=== PATIENT | male | born 1985 | race Caucasian/White ===

== ENCOUNTER 2016-12-10 12:54 | Emergency (ER) | payer SELFPAY ==
[~2016-12-10 12:54] MED LIST: Acetaminophen/HYDROcodone 325-5 MG Tab PO ONE; metroNIDAZOLE 500 MG Tab PO ONE
[2016-12-10 13:00] VITALS: BP 154/105
[2016-12-10] MEDS ORDERED: Ibuprofen 200 MG Tab PO ONE (13:03)
[2016-12-10] MEDS ORDERED: metroNIDAZOLE 500 MG Tab PO ONE (13:17)
[2016-12-10] MEDS ORDERED: Acetaminophen/HYDROcodone 325-5 MG Tab PO ONE (13:18)
[2016-12-10] MEDS ORDERED: Take Home: Acetaminophen/HYDROcodone 325-5 MG, 2 Tab Pack PO ONE (13:20)
[2016-12-10] MEDS ORDERED: Take Home: metroNIDAZOLE 500 MG Tab, 4 Tab Pack PO ONE (13:21)
--- NOTE | 2016-12-10 13:31 | EDM.PDOC ---
ED HPI GENERAL MEDICAL PROBLEM - General Chief Complaint: Fever Stated Complaint: tooth infection Time Seen by Provider: 12/10/16 13:07 Source of Information: Reports: Patient History Limitations: Reports: No Limitations - History of Present Illness INITIAL COMMENTS - FREE TEXT/NARRATIVE: This patient is a 31 year old male that presents to the ER. Patient reports that since Sunday he has had dental pain. He reports he did have right upper dental pain and was seen by his PCP on Sunday, was prescribed Clindamycin. The patient reports then yesterday he started having also right lower frontal tooth pain with swelling and fever. The patient reports it does hurt to eat or drink. The patient denies judge, dizziness, n, v, d, neck pain, cp, soa, abd pain. The patient has mild trismus with mild swelling right lower jaw. The patient does not have facial cellulitis. No orbital involvement. Patient is fully alert and oriented. He is conversing in full and complete sentences without difficulty. Onset Date: 12/04/16 Location: Reports: Other (tooth) Quality: Reports: Throbbing Severity: Moderate Improves with: Reports: None Worsens with: Reports: None Associated Symptoms: Reports: Fever/Chills. 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 (see below) (Clindamycin) Right Oral/Mouth Pain Score (Numeric/FACES): 8 - Related Data Allergies Allergy/AdvReac Type Severity Reaction Status Date / Time No Known Allergies Allergy Verified 12/10/16 12:55 Home Meds: Home Meds Clindamycin HCl 300 mg PO TID 12/10/16 [History] Nebivolol HCl [Bystolic] 10 mg PO DAILY 12/10/16 [History] Past Medical History - Past Health History Medical/Surgical History: Denies Medical/Surgical History Social & Family History - Tobacco Use Smoking Status *Q: Current Every Day Smoker Years of Tobacco use: 8 Packs/Tins Daily: 1 - Caffeine Use Caffeine Use: Reports: Coffee - Recreational Drug Use Recreational Drug Use: No ED ROS ENT - Review of Systems Review Of Systems: See Below Constitutional: Reports: Fever HEENT: Reports: Other (tooth pain right frontal lower) Respiratory: Reports: No Symptoms Cardiovascular: Reports: No Symptoms Endocrine: Reports: No Symptoms GI/Abdominal: Reports: No Symptoms : Reports: No Symptoms Musculoskeletal: Reports: No Symptoms Skin: Reports: No Symptoms Neurological: Reports: No Symptoms Psychiatric: Reports: No Symptoms Hematologic/Lymphatic: Reports: No Symptoms Immunologic: Reports: No Symptoms ED EXAM, ENT - Physical Exam Exam: See Below Exam Limited By: No Limitations General Appearance: Alert, WD/WN, No Apparent Distress Eye Exam: Bilateral Eye: Normal Inspection, PERRL Ears: Normal External Exam, Normal Canal, Hearing Grossly Normal, Normal TMs Nose: Normal Inspection, Normal Mucousa, No Blood Mouth/Throat: Normal Inspection, Dental Abcess (right frontal lower right jaw), Dental Pain (right frontal lower), Trismus (mild). No: Drooling, Throat Pain, Throat Swelling, Tongue Swelling, Tonsillar Erythema, Tonsillar Exudates, Tonsillar Swelling, Uvular Deviation, Uvular Edema Head: Atraumatic, Normocephalic Neck: Normal Inspection, Supple, Non-Tender, Full Range of Motion. No: Lymphadenopathy (L), Lymphadenopathy (R) Respiratory/Chest: No Respiratory Distress, Lungs Clear, Normal Breath Sounds, No Accessory Muscle Use Cardiovascular: Normal Peripheral Pulses, Regular Rate, Rhythm, No Edema, No Gallop, No JVD, No Murmur, No Rub Extremities: Normal Inspection Neurological: Alert, Oriented Psychiatric: Normal Affect, Normal Mood Skin: Warm, Dry, Intact, Normal Color, No Rash Lymphatic: No Adenopathy Course - Vital Signs Last Recorded V/S: Last Vital Signs Temp 100.1 F 12/10/16 12:57 Pulse 127 H 12/10/16 12:57 Resp 18 12/10/16 12:57 BP 154/105 H 12/10/16 12:57 Pulse Ox 98 12/10/16 12:57 - Orders/Labs/Meds Meds: Medications Discontinued Medications Generic Name Dose Route Start Last Admin Trade Name Varsha PRN Reason Stop Dose Admin Hydrocodone Bitart/Acetaminophen 2 tab 12/10/16 13:18 12/10/16 13:22 [place] 325-5 Mg PO 12/10/16 13:19 2 tab ONETIME ONE Administration Hydrocodone Bitart/Acetaminophen 3 packet 12/10/16 13:20 12/10/16 13:31 Take Home: Acetaminophen/Hydrocod, 2 Tab Pack PO 12/10/16 13:21 3 packet ONETIME ONE Administration Al Hydroxide/Mg Hydroxide 30 ml 12/10/16 13:32 12/10/16 13:39 Mag-Al Plus PO 12/10/16 13:33 30 ml ONETIME ONE Administration Ibuprofen 800 mg 12/10/16 13:03 12/10/16 13:07 Motrin PO 12/10/16 13:04 800 mg ONETIME ONE Administration Lidocaine HCl 15 ml 12/10/16 13:32 12/10/16 13:39 Xylocaine 2% Viscous PO 12/10/16 13:33 15 ml ONETIME ONE Administration Metronidazole 500 mg 12/10/16 13:17 12/10/16 13:22 Flagyl PO 12/10/16 13:18 500 mg ONETIME ONE Administration Metronidazole 1 packet 12/10/16 13:21 12/10/16 13:31 Take Home: Metronidazole 500 Mg, 4 Tab Pack PO 12/10/16 13:22 1 packet ONETIME ONE Administration - Re-Assessments/Exams Free Text/Narrative Re-Assessment/Exam: 12/10/16 13:31 Patient has an obvious dental abscess. At this time, will stop his Clindamycin, Start Flagyl. Will prescribe him something for pain and refer to oral surgeon tomorrow. Patient is educated when to return to the ER. Departure - Departure Time of Disposition: 13:32 Disposition: Home, Self-Care 01 Condition: fair Clinical Impression: Dental abscess - Discharge Information Referrals: Marco Antonio Narvaez PA-C [Primary Care Provider] - Forms: ED Department Discharge Additional Instructions: See a Dentist/Oral Surgeon tomorrow Followup with your primary care provider as needed Return to the ER for worsening of condition or any emergent concerns such as vomiting, continued fever after using Tylenol and Motrin. Ice to the area Stop Clindamycin Start Flagyl 500mg 1 pill four times a day for 10 days #36 no refill: Given #4 ER take home. [place] 5/325mg 1-2 pills every 4-6 hours as needed for pain #15 no refill: #6 take home. - Assessment/Plan Plan: PLEASE SEE RN NOTE FOR PFSH.
[2016-12-10] MEDS ORDERED: Lidocaine 2% Viscous Solution 15 ML Cup PO ONE (13:32)
[2016-12-10] MEDS ORDERED: Aluminum Hydroxide/Magnesium Hydroxide/Simethicone Susp 30 ML Cup PO ONE (13:32)
== END 2016-12-10 13:45 | disposition home or self-care (01) ==
LOC: CC.ED 12:54
DX: K04.7 Periapical abscess without sinus (principal); F17.210 Nicotine dependence, cigarettes, uncomplicated; Z79.899 Other long term (current) drug therapy
CPT/HCPCS: 99283; A9270

== ENCOUNTER 2018-04-30 16:19 | Emergency (ER) | payer MEDICAID ==
[2018-04-30 16:30] VITALS: BP 148/98
[2018-04-30] MEDS ORDERED: cefTRIAXone 1 GM Vial IM ONE (16:53)
[2018-04-30] MEDS ORDERED: Lidocaine 1% 20 ML MDV INJECT ONE (16:53)
[2018-04-30] MEDS ORDERED: Ketorolac 60 MG/2 ML SDV IM ONE (16:54)
--- NOTE | 2018-04-30 17:05 | EDM.PDOC ---
ED HPI GENERAL MEDICAL PROBLEM - General Chief Complaint: General Stated Complaint: TOOTHACHE Time Seen by Provider: 04/30/18 16:45 Source of Information: Reports: Patient History Limitations: Reports: No Limitations - History of Present Illness INITIAL COMMENTS - FREE TEXT/NARRATIVE: Jimmy is a 32 yo male who presents to the ER via private vehicle with complaints of right lower tooth pain. He states it started bothering him the last few days and feels as if he is getting an abscess. Admits to poor dental hygiene and has had multiple problems with his teeth. Unable to chew food on the that side of his mouth. States he did not try to see a dentist d/t the cost and he can't afford to have it pulled. Left Lower Tooth/Teeth Pain Score (Numeric/FACES): 8 - Related Data Allergies Allergy/AdvReac Type Severity Reaction Status Date / Time No Known Allergies Allergy Verified 04/30/18 16:24 Home Meds: Home Meds Propranolol [Inderal] 40 mg PO DAILY PRN 04/30/18 [History] Past Medical History - Past Health History Medical/Surgical History: Denies Medical/Surgical History Social & Family History - Tobacco Use Smoking Status *Q: Current Every Day Smoker Years of Tobacco use: 10 Packs/Tins Daily: 0.5 - Caffeine Use Caffeine Use: Reports: None - Alcohol Use Days Per Week of Alcohol Use: 3 Number of Drinks Per Day: 4 Total Drinks Per Week: 12 - Recreational Drug Use Recreational Drug Use: No ED ROS GENERAL - Review of Systems Review Of Systems: See Below Constitutional: Reports: No Symptoms HEENT: Reports: Dental Pain Respiratory: Reports: No Symptoms Cardiovascular: Reports: Blood Pressure Problem Skin: Reports: No Symptoms ED EXAM, GENERAL - Physical Exam Exam: See Below Exam Limited By: No Limitations General Appearance: Alert, Mild Distress, Moderate Distress Eye Exam: Bilateral Eye: EOMI, Normal Inspection, PERRL Ears: Normal External Exam, Normal Canal, Hearing Grossly Normal, Normal TMs Nose: Normal Inspection, Normal Mucosa, No Blood Throat/Mouth: Normal Inspection, Normal Lips, Normal Voice, No Airway Compromise , Other (broken first premolar with extreme tenderness with palpation. Abscess formation noted along lower gum line. No drainage noted. ). No: Normal Teeth Head: Atraumatic, Normocephalic Neck: Normal Inspection, Supple, Full Range of Motion. No: Lymphadenopathy (L) , Lymphadenopathy (R) Course - Vital Signs Last Recorded V/S: Last Vital Signs Temp 99.2 F 04/30/18 16:25 Pulse 108 H 04/30/18 16:25 Resp 16 04/30/18 16:25 BP 148/98 H 04/30/18 16:25 Pulse Ox 98 04/30/18 16:25 - Orders/Labs/Meds Meds: Medications Discontinued Medications Generic Name Dose Route Start Last Admin Trade Name Varsha PATEL Reason Stop Dose Admin Ceftriaxone Sodium 1 gm 04/30/18 16:53 04/30/18 17:02 Rocephin IM 04/30/18 16:54 1 gm ONETIME ONE Administration Ketorolac Tromethamine 60 mg 04/30/18 16:54 04/30/18 17:03 Toradol IM 04/30/18 16:55 60 mg ONETIME ONE Administration Lidocaine HCl 2.1 ml 04/30/18 16:53 04/30/18 17:02 Xylocaine 1% INJECT 04/30/18 16:54 2.1 ml ONETIME ONE Administration Departure - Departure Time of Disposition: 14:50 Disposition: Home, Self-Care 01 Clinical Impression: Dental abscess, Uncontrolled hypertension - Discharge Information Instructions: Dental Abscess, [id number], Tooth Injuries, [id number] Forms: ED Department Discharge Additional Instructions: 1) Amoxicillin 875mg twice a day for 10 days 2) Tylenol # 3 - 1-2 tablets every 4 hours as needed for breakthru pain 3) Ibuprofen 800mg - 1 tablet every 6 hours as needed * All medications called into [facility] 4) May apply ice to area 5) Salt water rinses 6) Need to see dentist for extraction of tooth. 7) Follow up if any concerns. - Problem List & Annotations (1) Dental abscess SNOMED Code(s): 947294009 Code(s): K04.7 - PERIAPICAL ABSCESS WITHOUT SINUS Status: Acute (2) Uncontrolled hypertension SNOMED Code(s): 85602989, 64978897 Code(s): I10 - ESSENTIAL (PRIMARY) HYPERTENSION Status: Acute - Assessment/Plan Plan: Jimmy has known history of high blood pressure and has been on Bystolic in the past. He hasn't been seen in clinic since September of 2017 and states he does not take the propanolol daily. Admits he hasn't had any blood pressure symptoms. We did find samples of Bystolic and discussed the importance of treatment compliance. He is to take antibiotic as directed. Ultimately, he needs to see a dentist for tooth extraction. May use Tylenol #3 for break thru pain and also prescribed ibuprofen 800mg.
== END 2018-04-30 17:13 | disposition home or self-care (01) ==
LOC: CC.ED 16:19
DX: K04.7 Periapical abscess without sinus (principal); I10 Essential (primary) hypertension; F17.210 Nicotine dependence, cigarettes, uncomplicated; Z79.899 Other long term (current) drug therapy
CPT/HCPCS: 96372; 99282; J0696; J1885

== ENCOUNTER 2020-04-25 14:34 | Emergency (ER) | payer MEDICAID ==
[2020-04-25] MEDS ORDERED: traMADol 50 MG Tab PO ONE (14:35)
[2020-04-25] MEDS ORDERED: Amoxicillin/Clavulanate K 875-125 MG Tab PO ONE (14:35)
[2020-04-25] MEDS ORDERED: Ketorolac 60 MG/2 ML SDV IM ONE (15:00)
[2020-04-25] MEDS ORDERED: Take Home: traMADol 50 MG, 4 Tab Pack PO ONE (15:00)
[2020-04-25] MEDS ORDERED: Take Home: Amoxicillin/Clavulanate K 875-125 MG Tab, 2 Tab Pack PO ONE (15:09)
[2020-04-25 15:10] VITALS: BP 124/78; PULSE 62
--- NOTE | 2020-04-25 15:15 | EDM.PDOC ---
ED HPI GENERAL MEDICAL PROBLEM - General Chief Complaint: General Stated Complaint: R Lower Dental Pain Time Seen by Provider: 04/25/20 15:05 Source of Information: Reports: Patient History Limitations: Reports: No Limitations - History of Present Illness INITIAL COMMENTS - FREE TEXT/NARRATIVE: Jimmy is a 34 year old male who presents to the ER with complaints of dental pain. Admits has multiple issues with his teeth and is in the process of "getting them removed". Multiple teeth have broken off, now having pain in the right lower molar region. Has been taking tylenol and ibuprofen for the last 3 days without much improvement. He has not yet contacted the dentist about these symptoms. Has been in ER prior for same complaint, states hasn't been able to afford dental care until now. 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, NSAIDS r lower dental Pain Score (Numeric/FACES): 10 - Related Data Allergies Allergy/AdvReac Type Severity Reaction Status Date / Time No Known Allergies Allergy Verified 04/30/18 16:24 Home Meds: Home Meds Propranolol [Inderal] 40 mg PO DAILY PRN 04/30/18 [History] Past Medical History - Past Health History Medical/Surgical History: Denies Medical/Surgical History Social & Family History - Family History Family Medical History: Noncontributory - Tobacco Use Tobacco Use Status *Q: Never Tobacco User Second Hand Smoke Exposure: No - Caffeine Use Caffeine Use: Reports: None - Recreational Drug Use Recreational Drug Use: No ED ROS ENT - Review of Systems Review Of Systems: See Below Constitutional: Denies: Fever, Chills, Malaise, Weakness, Fatigue HEENT: Reports: Dental Pain Respiratory: Reports: No Symptoms Cardiovascular: Reports: No Symptoms Endocrine: Reports: No Symptoms GI/Abdominal: Reports: No Symptoms ED EXAM, ENT - Physical Exam Exam: See Below Exam Limited By: No Limitations General Appearance: Alert, WD/WN, No Apparent Distress Ears: Normal External Exam, Normal TMs Nose: Normal Inspection, Normal Mucousa, No Blood Mouth/Throat: Dental Abcess, Dental Pain, Dental Tenderness, Other (multiple dental caries noted through mouth. Many teeth broke off at root. ) Head: Normocephalic Neck: Normal Inspection, Supple, Non-Tender Respiratory/Chest: No Respiratory Distress, Lungs Clear, Normal Breath Sounds Cardiovascular: Regular Rate, Rhythm Course - Vital Signs Last Recorded V/S: Last Vital Signs Temp 97.1 F 04/25/20 15:04 Pulse 62 04/25/20 15:04 Resp 14 04/25/20 15:04 BP 124/78 04/25/20 15:04 Pulse Ox 99 04/25/20 15:04 - Orders/Labs/Meds Meds: Medications Discontinued Medications Generic Name Dose Route Start Last Admin Trade Name Freq PRN Reason Stop Dose Admin Amoxicillin/Clavulanate Potassium 1 packet 04/25/20 15:09 Take Home: Amox/Clavulanate 875-12, 2 Tab Pac PO 04/25/20 15:10 ONETIME ONE Ketorolac Tromethamine 60 mg 04/25/20 15:00 Toradol IM 04/25/20 15:01 ONETIME ONE Tramadol HCl 1 packet 04/25/20 15:00 Take Home: Tramadol 50 Mg, 4 Tab Pack PO 04/25/20 15:01 ONETIME ONE Departure - Departure Time of Disposition: 15:14 Disposition: Home, Self-Care 01 Condition: Good Clinical Impression: Dental abscess - Discharge Information *PRESCRIPTION DRUG MONITORING PROGRAM REVIEWED*: No *COPY OF PRESCRIPTION DRUG MONITORING REPORT IN PATIENT PAM: No Instructions: Dental Abscess Additional Instructions: 1. Augmentin 875 mg twice a day for 10 days 2. Tramadol 50 mg every 6 hours as needed for pain, may supplement with tylenol 3. Contact dentist for further treatment or primary care provider as needed. Sepsis Event Note (ED) - Evaluation Sepsis Screening Result: No Definite Risk - Focused Exam Vital Signs: Vital Signs Temp Pulse Resp BP Pulse Ox 04/25/20 15:04 97.1 F 62 14 124/78 99
== END 2020-04-25 15:45 | disposition home or self-care (01) ==
LOC: CC.ED 14:34
DX: K04.7 Periapical abscess without sinus (principal); K02.9 Dental caries, unspecified
CPT/HCPCS: 96372; 99282; A9270-GY; J1885